=== PATIENT | female | born 1980 | race American Indian/Alaskan Native ===

== ENCOUNTER 2016-07-18 15:39 | Emergency (ER) | payer OTHER ==
[2016-07-18 17:19] VITALS: BP 118/81
[2016-07-18 19:14] LABS: Basophils % (Auto) 0.2 % (0.0-1.8); Eosinophils % (Auto) 8.4 % (0.0-4.3); Hematocrit 38.9 % (30.3-42.9); Hemoglobin 12.7 gm/dl (10.1-14.3); Mean Corpuscular HGB Conc 33 % (30-34); Mean Corpuscular Hemoglobin 30 pg (28-32); Mean Corpuscular Volume 90 fl (79-97); Platelet Count 262 K/mm3 (140-440); Red Blood Count 4.31 M/mm3 (3.65-5.03); Red Cell Distribution Width 13.3 % (13.2-15.2); White Blood Count 11.6 K/mm3 (4.5-11.0)
[2016-07-18 19:17] LABS: Alanine Aminotransferase 9 units/L (7-56); Albumin 4.1 g/dL (3.9-5); Albumin/Globulin Ratio 1.3 %; Alkaline Phosphatase 69 units/L (35-129); Anion Gap 15 mmol/L; Bilirubin,Total 0.4 mg/dL (0.1-1.2); Blood Urea Nitrogen 14 mg/dL (7-17); Calcium 9.3 mg/dL (8.4-10.2); Carbon Dioxide 27 mmol/L (22-30); Chloride 98.5 mmol/L (98-107); Glucose 79 mg/dL (65-100); Lipase 33 units/L (13-60); Potassium 3.7 mmol/L (3.6-5.0); Sodium 137 mmol/L (137-145); Total Protein 7.2 g/dL (6.3-8.2)
[2016-07-18 19:30] LABS: Bilirubin,Urine NEG (Negative); Blood,Urine NEG (Negative); Ketones,Urine NEG (Negative); Leukocyte Esterase,Urine NEG (Negative); Mucus,Urine 2+ /HPF; Nitrite,Urine NEG (Negative); Protein,Urine <15 mg/dL mg/dL (Negative); Urobilinogen,Urine < 2.0 mg/dL (<2.0); WBC,Urine < 1.0 /HPF (0.0-6.0)
--- NOTE | 2016-07-19 07:27 | ED Elopement Review ---
ED Pt Elopement review - Results review Lab results: Laboratory Tests 07/18/16 07/18/16 07/18/16 17:18 18:16 18:16 WBC 11.6 H RBC 4.31 Hgb 12.7 Hct 38.9 MCV 90 MCH 30 MCHC 33 RDW 13.3 Plt Count 262 Lymph % (Auto) 28.9 [place] % (Auto) 8.1 H Eos % (Auto) 8.4 H Baso % (Auto) 0.2 Lymph # 3.4 Pre[place] # 0.9 H Eos # 1.0 H Baso # 0.0 Seg Neutrophils % 54.4 Seg Neutrophils # 6.3 Sodium 137 Potassium 3.7 Chloride 98.5 Carbon Dioxide 27 Anion Gap 15 BUN 14 Creatinine 0.7 Estimated GFR > 60 BUN/Creatinine Ratio 20.00 Glucose 79 POC Glucose 75 Calcium 9.3 Total Bilirubin 0.4 AST 14 ALT 9 Alkaline Phosphatase 69 Total Protein 7.2 Albumin 4.1 Albumin/Globulin Ratio 1.3 Lipase 33 HCG, Qual Urine Color Urine Turbidity Urine pH Ur Specific Bennett Urine Protein Urine Glucose (UA) Urine Ketones Urine Blood Urine Nitrite Urine Bilirubin Urine Urobilinogen Ur Leukocyte Esterase Urine WBC (Auto) Urine RBC (Auto) U Epithel Cells (Auto) Urine Mucus 07/18/16 07/18/16 18:16 18:20 WBC RBC Hgb Hct MCV MCH MCHC RDW Plt Count Lymph % (Auto) [place] % (Auto) Eos % (Auto) Baso % (Auto) Lymph # Preble # Eos # Baso # Seg Neutrophils % Seg Neutrophils # Sodium Potassium Chloride Carbon Dioxide Anion Gap BUN Creatinine Estimated GFR BUN/Creatinine Ratio Glucose POC Glucose Calcium Total Bilirubin AST ALT Alkaline Phosphatase Total Protein Albumin Albumin/Globulin Ratio Lipase HCG, Qual Negative Urine Color Yellow Urine Turbidity Clear Urine pH 5.0 Ur Specific Bennett 1.025 Urine Protein <15 mg/dl Urine Glucose (UA) Neg Urine Ketones Neg Urine Blood Neg Urine Nitrite Neg Urine Bilirubin Neg Urine Urobilinogen < 2.0 Ur Leukocyte Esterase Neg Urine WBC (Auto) < 1.0 Urine RBC (Auto) 4.0 U Epithel Cells (Auto) 1.0 Urine Mucus 2+ - Call Back decision Pt Call Back Decision: No action required
== END 2016-07-19 00:18 | disposition left against medical advice (07) ==
LOC: ED 15:39
DX: E86.0 Dehydration (principal); K59.00 Constipation, unspecified; Z53.21 Procedure and treatment not carried out due to patient leaving prior to being seen by health care provider
CPT/HCPCS: 36415; 80053; 81001; 82962; 83690; 84703; 85025